=== PATIENT | female | born 1990 | race Caucasian/White ===

== ENCOUNTER 2021-02-27 13:28 | Emergency (ER) | payer OTHER, SELFPAY ==
[2021-02-27 13:34] VITALS: BP 116/75; PULSE 87; RESP 18; TEMP 36.2; O2SAT 100
--- NOTE | 2021-02-27 13:55 | ED.DENTAL ---
HPI - Dental/Oral General Chief complaint: Dental/Oral Stated complaint: tooth pain Time Seen by Provider: 02/27/21 13:50 Source: patient Mode of arrival: ambulatory Limitations: no limitations History of Present Illness HPI Narrative: Janiya Dodge is a 30 yo female with polycystic kidney disease [facility] with a a small abscess on the lower right . Her pain level was 7 out of 10 .she is applied for insurance work and hopes with take effect for the first of the month. Multiple teeth pulled as her dentition is very poor Related Data Allergies Allergy/AdvReac Type Severity Reaction Status Date / Time sulfamethoxazole Allergy Mild RASH Verified 02/27/21 13:47 trimethoprim Allergy Mild RASH Verified 02/27/21 13:47 Review of Systems Review of Systems: Narrative: CONSTITUTIONAL: Denies fever, chills, sweats. EYES: Denies visual changes, redness, discharge. ENT: Denies rhinorrhea, congestion, sore throat, otalgia. CARDIOVASCULAR: Denies chest pain, palpitations, edema. RESPIRATORY: Denies dyspnea, wheezing, cough GASTROINTESTINAL: Denies abdominal pain, nausea, vomiting, diarrhea. GENITOURINARY: Denies dysuria, hematuria, abnormal discharge SKIN: Denies rash or itching. NEUROLOGIC: Denies numbness, or focal weakness. PSYCHIATRIC: Denies anxiety or depression. Tooth pain more right with possible abscess formation PMFSH Past Medical History Medical History Polycystic kidney disease Family History Family History Father Alcoholism Mother Drug addiction Social History Social History (Updated 02/27/21 @ 14:03 by Diya Ramirez CNP) Smoking status: Current every day smoker Tobacco type: e-cigarettes/vaping Alcohol intake: never Living arrangements: with family Comments At time of signature, I agree with nursing past medical, surgical, social and family history. There is no relevant family history pertinent to the presenting complaint. Exam Narrative: Exam Narrative: GENERAL: This is a well-nourished, well-developed patient, in moderate distress. HEAD: normocephalic, atraumatic. EYES: Sclera clear/white. Vision is grossly intact. EARS: External ears normal. Hearing grossly intact. NOSE: External nose normal without nasal discharge, nares without redness, no rhinorrhea. THROAT: Mucous membranes moist, some parts of this dictation were generated by voice recognition software and may contain typographical and/or grammatical inaccuracies. Very poor, multiple fractured and missing teeth, her pain is at 2627 lower right with pustule on the gumline NECK: Neck supple,tender on right CARDIOVASCULAR: Regular rate and rhythm without murmurs, gallops, or rubs. RESPIRATORY: Clear to auscultation. Breath sounds equal bilaterally. No wheezes, rales, or rhonchi. GASTROINTESTINAL: Abdomen soft, non-tender, SKIN: warm, intact with no suspicious lesions or rash, good texture and turgor. NEURO: awake, alert, and oriented to person, place and time. There were no obvious focal neurologic abnormalities. Steady gait EXTREMITIES: Normal range of motion. BACK: Nontender without deformity Course Course Emergency Course: Patient comes to [facility] for dental pain and abscess Started on clindamycin and Tylenol 3 is to follow-up with a dentist within a week Vital Signs Vital signs: Vital Signs Temperature 97.2 F L 02/27/21 13:34 Pulse Rate 87 02/27/21 13:34 Respiratory Rate 18 02/27/21 13:34 Blood Pressure 116/75 02/27/21 13:34 Pulse Oximetry 100 02/27/21 13:34 Temperature 97.2 F L 02/27/21 13:34 Pulse Rate 87 02/27/21 13:34 Respiratory Rate 18 02/27/21 13:34 Blood Pressure 116/75 02/27/21 13:34 Pulse Oximetry 100 02/27/21 13:34 MDM - Dental/Oral Differential Diagnosis Differential diagnosis: Likely gingival abscess, dental caries, toothach
== END 2021-02-27 14:13 | disposition home or self-care (01) ==
PROVIDERS: Emergency Provider Nurse Practitioner
DX: K04.7 Periapical abscess without sinus (principal); Q61.3 Polycystic kidney, unspecified; F17.200 Nicotine dependence, unspecified, uncomplicated
CPT/HCPCS: 99213; G0463

== ENCOUNTER 2021-12-26 10:19 | Emergency (ER) | payer OTHER, SELFPAY ==
[2021-12-26 10:27] VITALS: BP 118/76; PULSE 82; RESP 18; TEMP 36.6; O2SAT 100
--- NOTE | 2021-12-26 10:40 | ED.DENTAL ---
HPI - Dental/Oral General Chief complaint: Dental/Oral Stated complaint: Tooth Pain Time Seen by Provider: 12/26/21 10:40 Source: patient Mode of arrival: ambulatory Limitations: no limitations History of Present Illness HPI Narrative: 31-year-old female presents with complaint of left lower dental pain. Reports that she has a known hole between 2 teeth. History of dental abscesses. Requesting antibiotic. States that she does have a dentist but has not made an appointment. Patient denies fever chills. All systems reviewed and negative except as noted above. Related Data Allergies Allergy/AdvReac Type Severity Reaction Status Date / Time sulfamethoxazole Allergy Mild RASH Verified 12/26/21 10:35 trimethoprim Allergy Mild RASH Verified 12/26/21 10:35 Review of Systems Review of Systems: CONSTITUTIONAL: Denies fever, chills, or sweats. EYES: Denies visual changes, redness, or discharge. ENT: Denies rhinorrhea, congestion, sore throat, or otalgia. Left lower dental pain. CARDIOVASCULAR: Denies chest pain, palpitations, or edema. RESPIRATORY: Denies cough or dyspnea. GASTROINTESTINAL: Denies abdominal pain, nausea, vomiting, or diarrhea. GENITOURINARY: Denies dysuria or hematuria. SKIN: Denies rash or itching. MUSCULOSKELETAL: Denies back pain, joint pain, or myalgia. NEUROLOGIC: Denies headache, numbness, or weakness. PSYCHIATRIC: Denies anxiety or depression. All other systems reviewed are negative, except as documented in HPI. PMFSH Past Medical History Medical History Polycystic kidney disease Family History Family History Father Alcoholism Mother Drug addiction Social History Social History (Updated 02/27/21 @ 14:03 by Diya Ramirez CNP) Smoking status: Current every day smoker Tobacco type: e-cigarettes/vaping Alcohol intake: never Comments At time of signature, agree with nursing past medical, surgical, social and family history. There is no relevant family history pertinent to the presenting complaint. Exam Narrative: GENERAL: This is a well-nourished, well-developed patient, in no apparent distress. HEAD: normocephalic, atraumatic. EYES: PERRL. Sclera clear/white. Vision is grossly intact. EARS: External ears normal NOSE: External nose normal THROAT: Mucous membranes moist, posterior pharynx clear. MOUTH: Hole between tooth #20 and 19. There is some erythema surrounding the gums. No fluctuance noted concerning for dental abscess. NECK: Neck supple, non-tender without lymphadenopathy, masses or thyromegaly. CARDIOVASCULAR: Regular rate RESPIRATORY: Normal respiratory rate. SKIN: warm, Dry, intact with no suspicious lesions or rash, good texture and turgor. NEURO: awake, alert, and oriented to person, place and time. There were no obvious focal neurologic abnormalities. EXTREMITIES: Normal range of motion. Course Course Level of Care: Express Care Visit Vital Signs Vital signs: Vital Signs Temperature 36.6 C 12/26/21 10:27 Pulse Rate 82 12/26/21 10:27 Respiratory Rate 18 12/26/21 10:27 Blood Pressure 118/76 12/26/21 10:27 Pulse Oximetry 100 12/26/21 10:27 Temperature 36.6 C 12/26/21 10:27 Pulse Rate 82 12/26/21 10:27 Respiratory Rate 18 12/26/21 10:27 Blood Pressure 118/76 12/26/21 10:27 Pulse Oximetry 100 12/26/21 10:27 Reviewed MDM - Dental/Oral MDM Narrative Medical decision making narrative: Patient is aware of diagnosis, understands and agrees to treatment plan. Anticipatory guidance given. Patient agrees to follow-up as directed and is aware of reasons to seek care at the emergency department. Portions of this record may have been created with voice recognition software Differential Diagnosis Differential diagnosis: Likely dental caries, toothache, dental abscess and fracture of tooth Discharge Plan
== END 2021-12-26 10:46 | disposition home or self-care (01) ==
PROVIDERS: Emergency Provider Nurse Practitioner Family
DX: K02.9 Dental caries, unspecified (principal); Q61.3 Polycystic kidney, unspecified; F17.290 Nicotine dependence, other tobacco product, uncomplicated
CPT/HCPCS: 99213; G0463

== ENCOUNTER 2022-05-27 19:12 | Emergency (ER) | payer OTHER, SELFPAY ==
[2022-05-27 19:19] VITALS: BP 126/79; PULSE 82; RESP 16; TEMP 37.1; O2SAT 99
--- NOTE | 2022-05-27 20:02 | ED.SKABFB ---
HPI - Skin/Abscess/Foreign Bdy General Chief complaint: Skin/Abscess/Foreign Body Stated complaint: rash Time Seen by Provider: 05/27/22 20:02 Source: patient, RN notes reviewed and old records reviewed Mode of arrival: ambulatory Limitations: no limitations History of Present Illness HPI narrative: 31-year-old female who presents to [facility] with complaints of having a rash had been put on steroids previously by a provider is here for second opinion. Patient reports she has had 2 doses of steroids and she has been using some OTC Benadryl ointment for the itching. Patient reports that she was hiking the weekend and then broke out in rash on Wednesday. Patient has red raised macular rash to lower extremities mainly, few spots to arms rash does veronica and is itchy. MD complaint: rash Onset (ago): day(s) (2-3 days) Related Data Allergies Allergy/AdvReac Type Severity Reaction Status Date / Time sulfamethoxazole Allergy Mild RASH Verified 12/26/21 10:35 trimethoprim Allergy Mild RASH Verified 12/26/21 10:35 Review of Systems Review of Systems: CONSTITUTIONAL: Denies fever, chills, or sweats. EYES: Denies visual changes, redness, or discharge. ENT: Denies rhinorrhea, congestion, sore throat, or otalgia. CARDIOVASCULAR: Denies chest pain, palpitations, or edema. RESPIRATORY: Denies cough or dyspnea. GASTROINTESTINAL: Denies abdominal pain, nausea, vomiting, or diarrhea. GENITOURINARY: Denies dysuria or hematuria. SKIN: Positive for rash or itching. MUSCULOSKELETAL: Denies back pain, joint pain, or myalgia. NEUROLOGIC: Denies headache, numbness, or weakness. PSYCHIATRIC: Denies anxiety or depression. All systems reviewed & are unremarkable except as noted in HPI and below [facility] Past Medical History Medical History (Updated 05/28/22 @ 22:06 by Cora Leonardo NP) Depression Polycystic kidney disease Seizures last 2014 Family History Family History Father Alcoholism Mother Drug addiction Social History Social History (Updated 05/28/22 @ 22:05 by Cora Leonardo NP) Smoking status: Former smoker Alcohol intake: former Alcohol use details: no alcohol use 5+ years Substance use: former Last use: no use for 5+ years Living arrangements: with family Gender identity (if verbalized by the patient): Female Comments At time of signature, agree with nursing past medical, surgical, social and family history. There is no relevant family history pertinent to the presenting complaint Exam Narrative: GENERAL: Well-appearing, well-nourished, and in no acute distress. HEAD: Normocephalic, atraumatic. EYES: PERRLA and EOMI. ENT: Nares clear, no rhinorrhea or epistaxis. Mucous membranes moist.TM's normal throat pink with no swelling NECK: Supple.no lymphadenopathy CHEST: Clear to auscultation. No respiratory distress.SAO2 99% on room air HEART: Regular rate and rhythm. No murmur heard. Normal peripheral pulses. ABDOMEN: Soft, nontender, nondistended, normal active bowel sounds. EXTREMITIES: Normal range of motion. No edema. SKIN: Warm, dry, red raised macular rash to legs feet and forearms itchy blanches NEURO: No focal deficits. Alert and oriented x3. Course Course Level of Care: Express Care Visit Vital Signs Vital signs: Vital Signs Temperature 37.1 C 05/27/22 19:19 Pulse Rate 82 05/27/22 19:19 Respiratory Rate 16 05/27/22 19:19 Blood Pressure 126/79 05/27/22 19:19 Pulse Oximetry 99 05/27/22 19:19 Oxygen Delivery Room Air 05/27/22 19:19 Temperature 37.1 C 05/27/22 19:19 Pulse Rate 82 05/27/22 19:19 Respiratory Rate 16 05/27/22 19:19 Blood Pressure 126/79 05/27/22 19:19 Pulse Oximetry 99 05/27/22 19:19 Oxygen Delivery Room Air 05/27/22 19:19 MDM - Skin/Abscess/Foreign Bdy Differential Diagnosis Differential diagnosis: Likely abscess of skin or subcutaneous tissue, viral exan
== END 2022-05-27 20:14 | disposition home or self-care (01) ==
PROVIDERS: Emergency Provider Registered Nurse
DX: L30.9 Dermatitis, unspecified (principal); Q61.3 Polycystic kidney, unspecified
CPT/HCPCS: 99213; G0463